=== PATIENT | female | born 1995 | race Two or more races ===

== ENCOUNTER 2020-02-13 17:56 | Observation (INO) | payer MEDICAID ==
[2020-02-13] MEDS ORDERED: PREN-217 PO (18:26)
[2020-02-13 18:29] VITALS: BP 131/88
== END 2020-02-13 21:25 | disposition home or self-care (01) ==
LOC: 4S 18:30
PROVIDERS: ADMIT Obstetrics & Gynecology; ATTEND Obstetrics & Gynecology
DX: O62.9 Abnormality of forces of labor, unspecified (principal); Z3A.39 39 weeks gestation of pregnancy; Z79.899 Other long term (current) drug therapy
CPT/HCPCS: 36415; 59025; 76805; 80307 ×8; 81002; 86592; 86762; 86850; 86900; 86901; 87340; G0378

== ENCOUNTER 2020-02-14 03:44 | Inpatient (IN) | payer MEDICAID ==
[~2020-02-14] VITALS: Ht 154.9 cm; Wt 88.5 kg
[~2020-02-14 03:44] MED LIST: PREN-217 PO
[2020-02-14] MEDS ORDERED: RINGERS SOLUTION,LACTATED 1,000 ML IV SCH (03:54)
[2020-02-14] MEDS ORDERED: OXYTOCIN 30 UNITS/LACT RINGERS 500 ML IV ONE ×3 (03:54→15:10)
[2020-02-14] MEDS ORDERED: RINGERS SOLUTION,LACTATED 1,000 ML IV PRN (03:54)
[2020-02-14] MEDS ORDERED: CITRIC ACID/SODIUM CITRATE 30 ML SOLUTION UDCUP PO PRN (04:00)
[2020-02-14] MEDS ORDERED: LIDOCAINE/PF 1% 30 ML VIAL INJ PRN ×2 (04:00→15:15)
[2020-02-14] MEDS ORDERED: AMPICILLIN SODIUM 2 GM/NS 100 ML IV ONE ×2 (04:00→04:10)
[2020-02-14] MEDS ORDERED: FentaNYL CITRATE-PF 100 MCG/2 ML VIAL IVP PRN (04:00)
[2020-02-14] MEDS ORDERED: METOCLOPRAMIDE HCL 5 MG/ML 2 ML VIAL IVP PRN (04:00)
[2020-02-14 04:05] VITALS: BP 117/72
[2020-02-14 04:43] LABS: BASOPHILS % (AUTO) 0.3 % (0.0-2.0); EOSINOPHILS % (AUTO) 0.1 % (1.0-6.0); HEMATOCRIT 44.1 % (36-46); HEMOGLOBIN 14.9 g/dL (12.0-16.0); LYMPHOCYTES # (AUTO) 1.4 K/uL (1.0-4.8); MEAN CORPUSCULAR HEMOGLOBIN 28.1 pg (26.0-34.0); MEAN CORPUSCULAR HGB CONC 33.6 G/dL (31.0-37.0); MEAN CORPUSCULAR VOLUME 83 fL (80-100); MONOCYTES # (AUTO) 0.4 K/uL (0.1-1.0); MONOCYTES % (AUTO) 3.9 % (2.0-9.0); NEUTROPHILS # (AUTO) 9.6 K/uL (1.8-7.7); NEUTROPHILS % (AUTO) 83.7 % (40.0-70.0); PLATELET COUNT (AUTO)-OB 266 K/uL (150-450); RED BLOOD CELL COUNT(AUTO) 5.29 MIL/uL (4.00-5.20); RED CELL DISTRIBUTION WIDTH 15.2 % (11.5-14.5)
[2020-02-14] MEDS ORDERED: INFLUENZA VIRUS VACCINE QVS 2019-20 (3YR+)/PF 60 MCG/0.5 ML SYRINGE IM ONE (05:00)
[2020-02-14] MEDS ORDERED: BUPIVACAINE HCL/PF 0.25% 10 ML VIAL ONE (05:08)
[2020-02-14] MEDS ORDERED: ROPIVACAINE HCL/PF 0.2% 100 ML ED ONE (05:08)
[2020-02-14] MEDS ORDERED: DiphenhydrAMINE HCL 50 MG/ML VIAL IVP PRN (05:45)
[2020-02-14] MEDS ORDERED: NALBUPHINE HCL 10 MG/ML VIAL IVP PRN (05:45)
[2020-02-14] MEDS ORDERED: ROPIVACAINE HCL/PF 0.2% 100 ML ED PRN (05:45)
[2020-02-14] MEDS ORDERED: ONDANSETRON HCL 4 MG/2 ML VIAL IVP PRN (05:45)
[2020-02-14] MEDS ORDERED: CARBOPROST TROMETHAMINE 250 MCG/ML AMP IM PRN (07:45)
[2020-02-14] MEDS ORDERED: METHYLERGONOVINE MALEATE 0.2 MG/ML VIAL IM PRN (07:45)
[2020-02-14] MEDS ORDERED: AMPICILLIN SODIUM 1 GM/NS 50 ML IV SCH (08:00)
[2020-02-14] MEDS ORDERED: OXYGEN THERAPY IH SCH (08:00)
[2020-02-14] MEDS ORDERED: OXYTOCIN 30 UNITS/LACT RINGERS 500 ML IV PRN (09:52)
[2020-02-14] MEDS ORDERED: GLYCERIN/WITCH HAZEL LEAF 40 PADS JAR TP PRN (15:15)
[2020-02-14] MEDS ORDERED: OxyCODONE HCL/ACETAMINOPHEN 5-325 MG TABLET PO PRN (15:15)
[2020-02-14] MEDS ORDERED: LANOLIN 7 GM OINTMENT TP PRN (15:15)
[2020-02-14] MEDS ORDERED: BENZOCAINE 20%/MENTHOL 56 GM SPRAY CANISTER TP PRN (15:15)
[2020-02-14] MEDS: IBUPROFEN 800 MG TABLET PO PRN ×2 (15:45→21:51)
[2020-02-14] MEDS: MAGNESIUM HYDROXIDE SUSPENSION 30 ML UDCUP PO PRN (20:45)
[2020-02-15 06:30] LABS: BASOPHILS % (AUTO) 0.6 % (0.0-2.0); EOSINOPHILS % (AUTO) 0.8 % (1.0-6.0); HEMOGLOBIN 11.6 g/dL (12.0-16.0); LYMPHOCYTES # (AUTO) 3.5 K/uL (1.0-4.8); LYMPHOCYTES % (AUTO) 23.2 % (22.0-44.0); MEAN CORPUSCULAR HGB CONC 33.2 G/dL (31.0-37.0); MEAN CORPUSCULAR VOLUME 84 fL (80-100); MONOCYTES # (AUTO) 1.2 K/uL (0.1-1.0); MONOCYTES % (AUTO) 8.4 % (2.0-9.0); PLATELET COUNT (AUTO)-OB 230 K/uL (150-450); RED BLOOD CELL COUNT(AUTO) 4.14 MIL/uL (4.00-5.20); RED CELL DISTRIBUTION WIDTH 15.6 % (11.5-14.5)
[2020-02-15] MEDS: OxyCODONE HCL/ACETAMINOPHEN 5-325 MG TABLET PO PRN ×3 (07:50→20:38)
[2020-02-15] MEDS: IBUPROFEN 800 MG TABLET PO PRN ×3 (07:50→20:38)
[2020-02-15] MEDS: MAGNESIUM HYDROXIDE SUSPENSION 30 ML UDCUP PO PRN ×2 (08:56→20:38)
[2020-02-15] MEDS ORDERED: DOCU-275 PO (13:34)
[2020-02-15] MEDS ORDERED: IBUP-2071 PO (13:34)
== END 2020-02-15 22:50 | disposition home or self-care (01) | DRG 806 ==
LOC: 4S 03:44 → PREOBSVTOIN 02-28 03:57
PROVIDERS: ADMIT Obstetrics & Gynecology; ATTEND Obstetrics & Gynecology
PROC: 10E0XZZ Delivery of Products of Conception, External Approach (ICD-10-PCS; principal; 2020-02-14)
PROC: 0W8NXZZ Division of Female Perineum, External Approach (ICD-10-PCS; 2020-02-14)
PROC: 3E0R3BZ Introduction of Anesthetic Agent into Spinal Canal, Percutaneous Approach (ICD-10-PCS; 2020-02-14)
PROC: 00HU33Z Insertion of Infusion Device into Spinal Canal, Percutaneous Approach (ICD-10-PCS; 2020-02-14)
PROC: 10907ZC Drainage of Amniotic Fluid, Therapeutic from Products of Conception, Via Natural or Artificial Opening (ICD-10-PCS; 2020-02-14)
PROC: 3E02340 Introduction of Influenza Vaccine into Muscle, Percutaneous Approach (ICD-10-PCS; 2020-02-14)
DX: O69.81X0 Labor and delivery complicated by cord around neck, without compression, not applicable or unspecified (principal); O71.4 Obstetric high vaginal laceration alone; Z37.0 Single live birth; O76 Abnormality in fetal heart rate and rhythm complicating labor and delivery; O77.0 Labor and delivery complicated by meconium in amniotic fluid; Z23 Encounter for immunization; Z3A.39 39 weeks gestation of pregnancy
CPT/HCPCS: 86850; 86900; 86901; 86923; 90686; J0290; J2590; J2795; J3490; J7120